=== PATIENT | female | born 1960 | race Caucasian/White ===

== ENCOUNTER → 2017-05-05 | Outpatient (CLI) | payer OTHER ==
--- NOTE | 2017-05-06 08:38 | RAD ---
DATE: 05/05/2017 EXAM: MAMMO CARLOS SCREENING BILATERAL HISTORY: Screening COMPARISON: None. This is a baseline study. This study was interpreted with the benefit of Computerized Aided Detection (CAD). FINDINGS: Breast Density: FATTY The Breast Parenchyma is primarily fatty replaced. Breast parenchyma level density A.. No mass or suspect calcifications are seen IMPRESSION: Benign findings BI-RADS CATEGORY: 2 BENIGN FINDING(S) RECOMMENDED FOLLOW-UP: 12M 12 MONTH FOLLOW-UP PQRS compliance statement: Patient information was entered into a reminder system with a target due date 05/05/2018 for the next mammogram. Mammography is a sensitive method for finding small breast cancers, but it does not detect them all and is not a substitute for careful clinical examination. A negative mammogram does not negate a clinically suspicious finding and should not result in delay in biopsying a clinically suspicious abnormality. "Our facility is accredited by the [employer] Mammography [employer]."
== END | disposition home or self-care (01) ==
LOC: MAMMO 15:34
PROVIDERS: ATTEND Nurse Practitioner Family
DX: Z12.31 Encounter for screening mammogram for malignant neoplasm of breast (principal)
CPT/HCPCS: 77063; G0202; 77067

== ENCOUNTER → 2017-09-29 | Outpatient (CLI) | payer OTHER ==
--- NOTE | 2017-09-29 10:13 | RAD ---
Exam: PA and lateral chest radiograph History: Chest congestion, cough for one week. Comparison: 01/03/2016. Findings: Cardiomediastinal silhouette is within normal limits for size. Bilateral lung nair are free of focal infiltrate. No pleural effusion is seen. Impression: No acute cardiopulmonary process.
== END | disposition home or self-care (01) ==
LOC: PMG 08:06
PROVIDERS: ATTEND Physician Assistant Medical
DX: R09.89 Other specified symptoms and signs involving the circulatory and respiratory systems (principal); R05 Cough
CPT/HCPCS: 71046

== ENCOUNTER → 2019-10-02 | Outpatient (CLI) | payer BC ==
--- NOTE | 2019-10-02 12:43 | RAD ---
EXAM: Dual energy x-ray absorptiometry (DEXA). HISTORY: Postmenopausal female presents for osteoporosis screening. COMPARISON: None. TECHNIQUE: Dual energy x-ray absorptiometry of the lumbar spine and right hip was performed. Calculation of bone mineral density based on standard deviations above or below the expected young adult normal value (T-score) was completed. FINDINGS: The average bone mineral density in the 1st through 4th lumbar vertebrae is 1.137 g/cmxcm, corresponding with a T-score of -0.4. The average total bone mineral density in the right hip is 0.931 g/cmxcm, corresponding with a T-score of -0.2. The average total bone mineral density in the right femoral neck is 0.837 g/cmxcm, corresponding with a T-score of -1.4. IMPRESSION: 1. Osteopenia measured at the right femoral neck. 2. Normal bone mineral density measured for the total right hip and for the lumbar spine. Note: Definitions established by the World Health Organization: 1. Normal: T-score is -1.0 or above. 2. Osteopenia: T-score is between -1.0 and -2.5 . 3. Osteoporosis: T-score is -2.5 or below. Electronically signed by: Irma Patel MD (10/02/2019 12:40 PM) [id number]
--- NOTE | 2019-10-04 12:08 | RAD ---
History: Routine Screening. Technique: Bilateral digital mammographic routine views were obtained with 2-D and 3-D technique, using CAD - computer aided detection. Comparison: 05/05/2017. Findings: Breast Tissue Density A : The breast tissue is predominately fatty replaced. There are no suspicious masses, microcalcifications or areas of architectural distortion. Impression: Negative mammogram. BI-RADS Category 1: Negative. Normal interval followup. . A mammogram does not have 100% sensitivity and therefore a negative imaging study should not delay further work up of a suspicious abnormality. The patient will receive a letter with the results in the mail. Patient information is entered into the reminder system with a target due date for the next screening mammogram. The patient will receive a reminder. "Our facility is accredited by the [employer] Mammography [employer]." BI-RADS 1 -- negative findings (within normal)
== END | disposition home or self-care (01) ==
LOC: MAMMO 10:14
PROVIDERS: ATTEND Physician Assistant Medical
DX: Z12.31 Encounter for screening mammogram for malignant neoplasm of breast (principal); Z00.01 Encounter for general adult medical examination with abnormal findings; C73 Malignant neoplasm of thyroid gland; N64.89 Other specified disorders of breast; M85.88 Other specified disorders of bone density and structure, other site
CPT/HCPCS: 77063; 77067; 77080

== ENCOUNTER → 2021-12-31 | Outpatient (CLI) | payer BC ==
[2021-12-31 10:30] LABS: BASO # 0.1 x10^3/uL (0.0-0.2); BASO % 1 % (0-3); EOS # 0.2 x10^3/uL (0.0-0.7); EOS % 2 % (0-3); HEMATOCRIT 47.9 % (36.0-47.0); LYMPH # 2.8 x10^3/uL (1.0-4.8); LYMPH % 30 % (24-48); MEAN CORPUSCULAR HEMOGLOBIN 28 pg (25-35); MEAN CORPUSCULAR HGB CONC 33 g/dL (31-37); MEAN CORPUSCULAR VOLUME 85 fL (79-100); MONO # 0.7 x10^3/uL (0.0-1.1); MONO % 8 % (0-9); NEUT # 5.4 x10^3uL (1.8-7.7); NEUT % 59 % (31-73); PLATELET COUNT 243 x10^3/uL (140-400); RED BLOOD COUNT 5.67 x10^6/uL (3.50-5.40); RED CELL DISTRIBUTION WIDTH 14.6 % (11.5-14.5); WHITE BLOOD COUNT 9.2 x10^3/uL (4.0-11.0)
[2021-12-31 12:47] LABS: SEDIMENTATION RATE 1 (0-25)
[2021-12-31 13:42] LABS: ALBUMIN 3.9 g/dL (3.4-5.0); ALBUMIN/GLOBULIN RATIO 1.2 (1.0-1.7); CALCIUM 9.1 mg/dL (8.5-10.1); CREATININE 0.8 mg/dL (0.6-1.0); GFR 72.9; POTASSIUM 4.9 mmol/L (3.5-5.1); TOTAL BILIRUBIN 0.8 mg/dL (0.2-1.0); TOTAL PROTEIN 7.2 g/dL (6.4-8.2)
--- NOTE | 2021-12-31 14:03 | RAD ---
Complete Abdominal Ultrasound: Clinical History: Reason: RUQ PAIN / Spl. Instructions: / History: Technique: Sonographic examination of the abdomen was performed and multiple static images were obta ined. Findings: Liver: The majority is visualized and there are a few cysts. There is increased echogenicity and atte nuation of sound which further limits ultrasound sensitivity for possible subtle liver lesion. The li sergio measures 18 cm in length. Common bile duct: Appears normal measures 3 mm in diameter. Gallbladder: Fairly distended and tender however there is no stones or wall thickening or surroundi ng fluid. Portal vein: Appears normal. Pancreas: is not well visualized due to overlying bowel gas. Right kidney: appears normal and measures 9 cm in length. Left kidney appears normal and measures 11 cm in length. Spleen: Not enlarged. Impression: 1. Borderline hepatomegaly and fatty infiltration of the liver. Hepatocellular disease is not exclude d and correlation with alpha-fetoprotein is recommended. 2. There is tenderness of the gallbladder. There is no wall thickening or surrounding fluid. Mild key lculous cholecystitis is possible. Otherwise tenderness could be secondary to a nearby abnormality bae ch as hepatitis. Electronically signed by: Gonzalo Daily III, MD (12/31/2021 2:01 PM) [facility]
== END ==
LOC: US 08:22
PROVIDERS: ATTEND Physician Assistant Medical
DX: K76.0 Fatty (change of) liver, not elsewhere classified (principal); K76.89 Other specified diseases of liver
CPT/HCPCS: 36415; 76700; 80053; 85025; 85651

== ENCOUNTER → 2022-01-08 | Outpatient (CLI) | payer BC, OTHER ==
--- NOTE | 2022-01-08 12:21 | RAD ---
Exam: CT abdomen/pelvis without intravenous contrast Indication: Kidney cancer, enlarged liver, possible gallstones Comparison: Right upper quadrant ultrasound 12/31/2021 Technique: Helical CT imaging performed of the abdomen and pelvis without the use of intravenous cont rast. Sagittal and coronal reformats were obtained. One or more of the following individualized dose reduction techniques were utilized for this examinat ion: 1. Automated exposure control 2. Adjustment of the mA and/or kV according to patient size 3. Use of iterative reconstruction technique. Findings: Inherently limited evaluation without intravenous contrast. Lower chest: The heart is normal in size. The lung bases are clear. Liver: Liver is normal in size measuring 18 cm in length and diffusely decreased in attenuation. Ther e are at least 3 circumscribed fluid density lesions in the liver measuring 2 to 3 cm, consistent wit h simple cysts. Gallbladder/Biliary Tree: Normal. Pancreas: Normal. Spleen: Normal. Adrenal Glands: There is a 9 mm hypodense right adrenal nodule consistent with and adenoma. The left adrenal gland is normal. Kidneys/Ureters/Bladder: There are surgical changes at the upper pole of the right kidney. The kidney s are normal in size. No nephrolithiasis or hydronephrosis. Noncontrast exam limits evaluation for a renal mass. Ureters are normal. The bladder is decompressed. Reproductive Organs: Uterus is surgically absent. No adnexal mass. Stomach, small bowel, and colon: The stomach is normal. There is no small bowel obstruction. Appendix is normal. There is sigmoid diverticulosis. Vasculature: No aortic aneurysm. Mild calcified aortoiliac atherosclerosis. Lymph Nodes: There are few small milo hepatis and left periaortic lymph nodes measuring up to 8 mm s hort axis. Peritoneum and retroperitoneum: No free fluid or free air. Bones: There is heterogeneous sclerotic and lucent appearance of the left pubic body, indeterminate. This could be due to degenerative joint disease of the pubic symphysis, although a bone lesion is not excluded (image 49, series 3 and image [id number], series 2) Miscellaneous: None. IMPRESSION: 1. Heterogeneous sclerotic and lucent appearance of the left pubic body. This is indeterminate and c ould be due to degenerative joint disease of the pubic symphysis although a bone lesion is not exclud ed. Recommend attention on follow-up, or MRI of the pelvis with and without contrast could be obtaine d to further evaluate. 2. Surgical changes of the right kidney. 3. Hepatic steatosis. 4. Hepatic cysts. 5. 9 mm right adrenal adenoma. 6. Sigmoid diverticulosis. Electronically signed by: Lola Benoit MD (01/08/2022 12:18 PM) [facility]
== END ==
LOC: CT 08:11
PROVIDERS: ATTEND Physician Assistant Medical
DX: D35.01 Benign neoplasm of right adrenal gland (principal); K76.0 Fatty (change of) liver, not elsewhere classified; K76.89 Other specified diseases of liver; K57.30 Diverticulosis of large intestine without perforation or abscess without bleeding; I70.8 Atherosclerosis of other arteries; Z90.710 Acquired absence of both cervix and uterus
CPT/HCPCS: 74176